=== PATIENT | female | born 1950 | race Caucasian/White ===

== ENCOUNTER 2019-07-28 10:22 | Emergency (ER) | payer BC ==
[2019-07-28] MEDS ORDERED: LEVALBUTEROL 1.25 MG/3 ML NEB ONE (11:24)
[2019-07-28] MEDS ORDERED: IPRATROPIUM BROM 0.5MG/2.5ML ONE (11:24)
--- NOTE | 2019-07-28 11:48 | RAD REPORT ---
EXAM DESCRIPTION: RAD - Chest Pa And Lat (2 Views) - 07/28/2019 11:04 am CLINICAL HISTORY: Congestion;Cough Chest pain. COMPARISON: Chest Single View dated 12/31/2016; CHEST PA AND LAT 2 VIEW dated 06/11/2013 FINDINGS: Prominent diffuse COPD is present. Calcified right peritracheal lymph nodes are present. T he heart is normal in size. No displaced fractures. IMPRESSION: Prominent COPD.
--- NOTE | 2019-07-28 12:18 | ER ---
Nurse's Notes [facility] Name: Alessandra Stone Age: 68 yrs Sex: Female : 1950 Arrival Date: 07/28/2019 Time: 10:38 Bed 19 Private MD: Diagnosis: Bronchitis, not specified as acute or chronic Presentation: 07/28 10:43 Presenting complaint: Patient states: "I have a horrible cough and its hard to breathe, aj1 and my neck and shoulders really hurts and I've had some chest pain" Reports that she has felt this way for the past 5 days. Transition of care: patient was not received from another setting of care. Onset of symptoms was July 2019. Risk Assessment: Do you want to hurt yourself or someone else? Patient reports no desire to harm self or others. Initial Sepsis Screen: Does the patient meet any 2 criteria? HR > 90 bpm. No. Patient's initial sepsis screen is negative. Does the patient have a suspected source of infection? Yes: Productive cough/pneumonia. Care prior to arrival: None. 10:43 Method Of Arrival: Ambulatory aj1 10:43 Acuity: TEVIN 3 aj1 Triage Assessment: 10:47 General: Appears in no apparent distress. comfortable, Behavior is calm, cooperative, aj1 appropriate for age. Pain: Complains of pain in chest and neck Pain currently is 3 out of 10 on a pain scale. EENT: Reports nasal congestion nasal discharge. Neuro: Level of Consciousness is awake, alert, obeys commands, Oriented to person, place, time, situation. Cardiovascular: Patient's skin is warm and dry. Respiratory: Reports shortness of breath on exertion cough that is productive, Onset: The symptoms/episode began/occurred 5 days ago, the patient has mild shortness of breath. Historical: - Allergies: 10:47 cilantro; aj1 - Home Meds: 10:47 None [Active]; aj1 - PMHx: 10:47 None; aj1 - PSHx: 10:47 Appendectomy; aj1 - Immunization history:: Flu vaccine is not up to date. - Coronavirus screen:: The patient has NOT traveled to [place], [place], or [place] in the past 14 days. - Social history:: Smoking status: Patient/guardian denies using tobacco. - Ebola Screening: : Patient denies travel to an Ebola-affected area in the 21 days before illness onset. Screenin:50 Abuse screen: Denies threats or abuse. Nutritional screening: No deficits noted. rb1 Tuberculosis screening: No symptoms or risk factors identified. Fall Risk None identified. Assessment: 10:50 General: Appears in no apparent distress. comfortable, Behavior is calm, cooperative, rb1 Reports fever for. Pain: Complains of pain in neck and chest Pain currently is 5 out of 10 on a pain scale. Pain began x 5 days Aggravated by coughing. Neuro: Level of Consciousness is awake, alert, obeys commands, Oriented to person, place, time, situation, Reports tingling in her fingers and when she touches her skin. Cardiovascular: Capillary refill < 3 seconds is brisk in bilateral fingers. Respiratory: Reports shortness of breath cough that is productive, yellow/green sputum Airway is patent Respiratory effort is even, unlabored, Respiratory pattern is regular, symmetrical. GI: Reports nausea. : No signs and/or symptoms were reported regarding the genitourinary system. Derm: Skin is pink, warm \\T\\ dry. 11:48 Reassessment: Patient appears in no apparent distress at this time. Patient and/or rb1 family updated on plan of care and expected duration. Pain level reassessed. Patient is alert, oriented x 3, equal unlabored respirations, skin warm/dry/pink. 12:43 Reassessment: Patient appears in no apparent distress at this time. No changes from rb1 previously documented assessment. Vital Signs: 10:47 BP 155 / 83; Pulse 100; Resp 20; Temp 98.2; Pulse Ox 94% on R/A; Weight 88.45 kg (R); aj1 Height 5 ft. 5 in. (165.10 cm) (R); Pain 3/10; 11:40 BP 138 / 77; Pulse 103; Resp 19; Pulse Ox 96% on R/A; rb1 12:38 BP 122 / 74; Pulse 109; Resp 19; Pulse Ox 97% on R/A; rb1 10:47 Body Mass Index 32.45 (88.45 kg, 165.10 cm) aj1 ED Course: 10:38 Patient arrived in ED. es 10:38 Arlene Prater FNP-C is PHCP. kb 10:38 Zane Vital MD is Attending Physician. kb 10:46 Triage completed. aj1 10:47 Arm band placed on Patient placed in an exam room. aj1 10:50 Patient has correct armband on for positive identification. Bed in low position. Call rb1 light in reach. Side rails up X 1. Pulse ox on. NIBP on. 11:02 Chest Pa And Lat (2 Views) XRAY In Process Unspecified. EDMS 11:06 Diann Thapa, RN is Primary Nurse. rb1 12:45 No provider procedures requiring assistance completed. Patient did not have IV access rb1 during this emergency room visit. Administered Medications: 11:24 Drug: Xopenex (3) 1.25 mg Route: Inhalation; rb1 11:24 Drug: AtroVENT Aerosol 0.5 mg Route: Inhalation; rb1 12:35 Drug: predniSONE 40 mg Route: PO; rb1 12:42 Follow up: Response: Medication administered at discharge. rb1 Outcome: 12:17 Discharge ordered by MD. kb 12:45 Discharged to home ambulatory, with family. rb1 12:45 Condition: stable 12:45 Discharge instructions given to patient, Instructed on discharge instructions, follow up and referral plans. medication usage, Demonstrated understanding of instructions, follow-up care, medications, Prescriptions given X 2. 12:45 Patient left the ED. rb1 Signatures: Dispatcher [employer] EDArlene Trevizo, SOFTWARE RELEASE MANAGER-Antonette HENSONP-Salma De La Rosa, RN RN aj1 Diane Najera Rebecca, RN RN rb1
--- NOTE | 2019-07-28 12:19 | EDPHYS ---
Physician Documentation [facility] Name: Alessandra Stone Age: 68 yrs Sex: Female : 1950 Arrival Date: 07/28/2019 Time: 10:38 Bed 19 Private MD: ED Physician Zane Vital HPI: 07/28 12:14 This 68 yrs old Female presents to ER via Ambulatory with complaints of kb Cough, Shortness Of Breath, Chest Congestion. 12:14 The patient or guardian reports cough, that is intermittent, described as moderate, kb with no sputum, difficulty breathing. Onset: The symptoms/episode began/occurred 5 day(s) ago. Severity of symptoms: At their worst the symptoms were moderate, in the emergency department the symptoms are unchanged. Modifying factors: The symptoms are alleviated by nothing, the symptoms are aggravated by nothing. Associated signs and symptoms: The patient has no apparent associated signs or symptoms. The patient has not experienced similar symptoms in the past. The patient has not recently seen a physician. Pt report cough and shortness of breath for 5 days. Quit smoking this week. Historical: - Allergies: 10:47 cilantro; aj1 - Home Meds: 10:47 None [Active]; aj1 - PMHx: 10:47 None; aj1 - PSHx: 10:47 Appendectomy; aj1 - Immunization history:: Flu vaccine is not up to date. - Coronavirus screen:: The patient has NOT traveled to [place], [place], or [place] in the past 14 days. - Social history:: Smoking status: Patient/guardian denies using tobacco. - Ebola Screening: : Patient denies travel to an Ebola-affected area in the 21 days before illness onset. ROS: 12:11 Constitutional: Negative for fever, chills, and weight loss, ENT: Negative for injury, kb pain, and discharge, Neck: Negative for injury, pain, and swelling, Cardiovascular: Negative for chest pain, palpitations, and edema, Abdomen/GI: Negative for abdominal pain, nausea, vomiting, diarrhea, and constipation, Back: Negative for injury and pain, MS/Extremity: Negative for injury and deformity, Skin: Negative for injury, rash, and discoloration, Neuro: Negative for headache, weakness, numbness, tingling, and seizure. 12:11 Respiratory: Positive for cough, shortness of breath. Exam: 12:13 Constitutional: This is a well developed, well nourished patient who is awake, alert, kb and in no acute distress. Head/Face: Normocephalic, atraumatic. ENT: Nares patent. No nasal discharge, no septal abnormalities noted. Tympanic membranes are normal and external auditory canals are clear. Oropharynx with no redness, swelling, or masses, exudates, or evidence of obstruction, uvula midline. Mucous membranes moist. Neck: Trachea midline, no thyromegaly or masses palpated, and no cervical lymphadenopathy. Supple, full range of motion without nuchal rigidity, or vertebral point tenderness. No Meningismus. Chest/axilla: Normal chest wall appearance and motion. Nontender with no deformity. No lesions are appreciated. Cardiovascular: Regular rate and rhythm with a normal S1 and S2. No gallops, murmurs, or rubs. Normal PMI, no JVD. No pulse deficits. Respiratory: Lungs have equal breath sounds bilaterally, clear to auscultation and percussion. No rales, rhonchi or wheezes noted. No increased work of breathing, no retractions or nasal flaring. Abdomen/GI: Soft, non-tender, with normal bowel sounds. No distension or tympany. No guarding or rebound. No evidence of tenderness throughout. Skin: Warm, dry with normal turgor. Normal color with no rashes, no lesions, and no evidence of cellulitis. MS/ Extremity: Pulses equal, no cyanosis. Neurovascular intact. Full, normal range of motion. Neuro: Awake and alert, GCS 15, oriented to person, place, time, and situation. Cranial nerves II-XII grossly intact. Motor strength 5/5 in all extremities. Sensory grossly intact. Cerebellar exam normal. Normal gait. Vital Signs: 10:47 BP 155 / 83; Pulse 100; Resp 20; Temp 98.2; Pulse Ox 94% on R/A; Weight 88.45 kg (R); aj1 Height 5 ft. 5 in. (165.10 cm) (R); Pain 3/10; 11:40 BP 138 / 77; Pulse 103; Resp 19; Pulse Ox 96% on R/A; rb1 12:38 BP 122 / 74; Pulse 109; Resp 19; Pulse Ox 97% on R/A; rb1 10:47 Body Mass Index 32.45 (88.45 kg, 165.10 cm) aj1 MDM: 10:49 Patient medically screened. kb 12:08 Data reviewed: vital signs, nurses notes. Data interpreted: Pulse oximetry: on room air kb is 94 %. Interpretation: acceptable. Counseling: I had a detailed discussion with the patient and/or guardian regarding: the historical points, exam findings, and any diagnostic results supporting the discharge/admit diagnosis, lab results, radiology results, the need for outpatient follow up, a family practitioner, to return to the emergency department if symptoms worsen or persist or if there are any questions or concerns that arise at home. 07/28 10:43 Order name: Flu; Complete Time: 11:46 kb 07/28 11:16 Order name: Strep; Complete Time: 11:46 kb 07/28 10:43 Order name: Chest Pa And Lat (2 Views) XRAY; Complete Time: 11:56 kb 07/28 11:46 Order name: Throat Culture EDMS Administered Medications: 11:24 Drug: Xopenex (3) 1.25 mg Route: Inhalation; rb1 11:24 Drug: AtroVENT Aerosol 0.5 mg Route: Inhalation; rb1 12:35 Drug: predniSONE 40 mg Route: PO; rb1 12:42 Follow up: Response: Medication administered at discharge. rb1 Disposition: 16:31 Co-signature as Attending Physician, Zane Vital MD I agree with the assessment and kdr plan of care. Disposition: 07/28/19 12:17 Discharged to Home. Impression: Bronchitis, not specified as acute or chronic. - Condition is Stable. - Discharge Instructions: Chronic Obstructive Pulmonary Disease, Acute Bronchitis, [id number]. - Prescriptions for Prednisone 20 mg Oral Tablet - take 1 tablet by ORAL route once daily for 5 days; 5 tablet. Albuterol Sulfate 90 mcg/actuation - inhale 1-2 puff by INHALATION route every 4-6 hours; 1 Inhaler. - Medication Reconciliation Form, Thank You Letter, Antibiotic Education, Prescription Opioid Use form. - Follow up: Emergency Department; When: As needed; Reason: Worsening of condition. Follow up: Private Physician; When: 2 - 3 days; Reason: Recheck today's complaints, Continuance of care, Re-evaluation by your physician. Signatures: Dispatcher [employer] EDMS Arlnee Prater FNP-C ENGAGEMENT MGR-CkSalma Jones, RN RN aj1 Zane Vital MD MD kdr Diann Thapa, RN RN rb1 Corrections: (The following items were deleted from the chart) 12:45 12:17 07/28/2019 12:17 Discharged to Home. Impression: Bronchitis, not specified as rb1 acute or chronic. Condition is Stable. Forms are Medication Reconciliation Form, Thank You Letter, Antibiotic Education, Prescription Opioid Use. Follow up: Emergency Department; When: As needed; Reason: Worsening of condition. Follow up: Private Physician; When: 2 - 3 days; Reason: Recheck today's complaints, Continuance of care, Re-evaluation by your physician. kb
[2019-07-28] MEDS ORDERED: predniSONE 20 MG TAB ONE (12:26)
== END 2019-07-28 12:45 | disposition home or self-care (01) ==
LOC: ER 10:22
DX: J40 Bronchitis, not specified as acute or chronic (principal); Z91.018 Allergy to other foods
CPT/HCPCS: 71046; 87070; 87081; 87804; 99284; J7512

== ENCOUNTER 2024-10-15 07:18 | Day surgery (SDC) | payer BC ==
[2024-10-12 16:32] LABS: Absolute Eosinophils 0.1 K/uL (0-0.5); Absolute Lymphocytes (CBC) 1.7 K/uL (0.7-4.9); Absolute Monocytes 0.6 K/uL (0.1-1.3); Absolute Neutrophil 3.7 K/uL (1.8-8.0); Basophils % 0.7 % (0-1.3); Eosinophils % 2.2 % (0-4.4); Hematocrit 36.9 % (36.0-45.0); Hemoglobin 12.8 g/dL (12.0-15.0); Lymphocytes % 27.5 % (15.3-44.8); MCH 33.3 pg (27.0-35.0); MCHC 34.7 g/dL (32.0-36.0); MCV 95.8 fL (80-100); MPV 7.9 fL (7.6-11.3); Monocytes % 9.2 % (3.3-12.3); Neutrophils % 60.4 % (41.7-73.7); Platelets 221 thou/uL (152-406); RBC Red Blood Cell Count 3.85 M/uL (3.86-4.86); Red Cell Distribution Width 15.3 % (12.1-15.2)
--- NOTE | 2024-10-12 16:47 | RAD REPORT ---
EXAMINATION: TWO VIEW CHEST XR CLINICAL INDICATION: pdre op for day surgery TECHNIQUE: 2 views of the chest was performed. COMPARISON: No prior exam. FINDINGS: The lungs are hyperexpanded suggesting COPD. The heart is normal in size. No displaced fractures evid ent. Calcified right paratracheal lymph nodes. IMPRESSION: COPD is suspected without acute finding identified.
[2024-10-12 16:51] LABS: ALT/SGPT 22 U/L (13-56); AST/SGOT 15 U/L (15-37); Albumin 3.6 g/dL (3.4-5.0); Albumin/Globulin Ratio 1.1 (1.1-1.8); Alkaline Phosphatase 87 U/L (45-117); Anion Gap 7.8 mEq/L (5.0-15.0); BUN Blood Urea Nitrogen 19 mg/dL (7-18); Bicarbonate 27 mEq/L (21-32); Bilirubin Direct < 0.2 mg/dL (0-0.2); Bilirubin Indirect, Calculated 0.1 mg/dL (0.2-0.8); Bilirubin Total 0.3 mg/dL (0.2-1.0); Globulin 3.2 g/dL (2.3-3.5); Glomerular Filtration Rate 72 ml/min (=/>90); Glucose Level 99 mg/dL (74-106); Lipase 48 U/L (13-75); Potassium 3.8 mEq/L (3.5-5.1); Protein, Total 6.8 g/dL (6.4-8.2); Sodium Level 142 mEq/L (136-145)
[2024-10-15] MEDS: Ringers Lactate 1,000 ML IV ONE (07:50)
[2024-10-15] MEDS ORDERED: KETOROLAC 30 MG/ML INJ ONE (08:23)
[2024-10-15] MEDS ORDERED: FENTANYL CITR 100 MCG/2 ML ONE (08:23)
[2024-10-15] MEDS ORDERED: LIDOCAINE 2% MPF 5 ML VIAL ONE (08:23)
[2024-10-15] MEDS ORDERED: ONDANSETRON 4 MG/2 ML VIAL ONE (08:23)
[2024-10-15] MEDS ORDERED: dexAMETHasone 10 MG/ML VIAL ONE (08:23)
[2024-10-15] MEDS ORDERED: propofoL 200 MG/20 ML VIAL IV ONE (08:23)
[2024-10-15] MEDS ORDERED: ROCURONIUM 50 MG/5 ML VIAL IV ONE (08:23)
[2024-10-15] MEDS ORDERED: MIDAZOLAM HCL 2 MG/2 ML INJ ONE (08:23)
[2024-10-15] MEDS: CEFOXITIN SODIUM 1 GM/VIAL ONE (08:37)
[2024-10-15] MEDS ORDERED: Mastisol Adhesive Liq ONE (09:12)
[2024-10-15] MEDS ORDERED: GLYCOPYRROLATE 0.2 MG/ML SYR ONE (09:42)
[2024-10-15] MEDS ORDERED: NEOSTIGMINE 1 MG/ML -10 ML VIAL ONE (09:42)
--- NOTE | 2024-10-15 09:58 | P.BOP ---
Preoperative diagnosis: symptomatic cholelithiasis, tender umbilical reducible hernia 3cm Postoperative diagnosis: same, intrabdominal adhesions, Primary procedure: 1. Laparoscopic cholecystectomy Secondary procedure: 2. umbilical reducible hernia repair 3cm Other procedure(s): 3. Lysis of adhesions Estimated blood loss: <10cc Specimen: gb, sac Findings: as above. multiple intrabdomnal adhesions, hx of abd surgeries for Cancer Anesthesia: General Complications: None Transferred to: Recovery Room Condition: Good
[2024-10-15] MEDS: HYDROMORPHONE HCL 1 MG/ML INJ ONE (10:22)
[2024-10-15] MEDS: FENTANYL CITR 100 MCG/2 ML ONE (10:32)
[2024-10-15] MEDS: CODEINE 30MG/APAP 300MG TAB ONE (11:00)
[2024-10-15 11:52] VITALS: BP 103/50; TEMP 97.7; O2SAT 98
--- NOTE | 2024-10-15 12:07 | OP ---
Date of Procedure: 10/15/2024 Surgeon: Lester Solis MD Preoperative Diagnoses: Symptomatic cholelithiasis, tender umbilical hernia, reducible about 3 cm. Postoperative Diagnoses: Symptomatic cholelithiasis, tender umbilical hernia, reducible about 3 cm p alisa intraabdominal adhesions. Procedures: 1. Laparoscopic cholecystectomy. 2. Open repair of reducible tender umbilical hernia about 3 cm. 3. Lysis of adhesions. Estimated Blood Loss: Less than 10 cc. Specimens: Gallbladder and hernia sac. Findings: The patient has multiple intraabdominal adhesions for a cancer that unfortunately trigger multiple adhesions. When we went inside the belly, we have to take those adhesions down to the anter ior abdominal wall, also adhesions to the liver and the gallbladder in order for us to start the surg franko that was done with the help of LigaSure. Complications: None. Anesthesia: General plus local. Indications: This is the case of a female, who came to us with 2 problems. She has a symptomatic ch olelithiasis and also she has an umbilical hernia. She wants both fixed. Both of them were giving h er pain and discomfort and obviously 2 different kind of pains. The benefits, alternatives, and risk s of laparoscopic, possible open cholecystectomy with repair of umbilical hernia fully explained, whi ch include, but not limited to, infection, bleeding, damage to adjacent structures, anesthesia compli cation, choledocholithiasis, bile leak, recurrence of the hernia, WI, and even . She also under stands this may not relieve any symptoms. She might need more than one surgical intervention. She u nderstood, signed a consent. She understood importance of losing weight and avoiding heavy lifting. Description Of Procedure: The patient was brought to the operating room, placed in supine position. Anesthesia was given without complication. Abdominal area was prepped and draped in a sterile fashi on. A time-out was called. Local anesthetic was applied followed by sharp incision of the skin in t he periumbilical region. Incision was carried down until we found the hernia sac. The hernia sac wa s then opened. We noticed the omentum cannot be reduced, so what we did, we suture ligated that one, and removed the rest of the hernia sac and cleaned the fascial edges, we were able to put Vicryl #1 inside the fascia and we used that opening for Francisca trocar. Once we have the Francisca trocar in, we obtained pneumoperitoneum and then placed 3 more trocars, 5 mm each one of them in the epigastric rig ht upper quadrant area, due to what I believe might be just previous surgeries for cancer. She has m ultiple adhesions in the abdomen and they have to be removed at least in the right upper quadrant to be able to proceed with the surgery. So, with the help of LigaSure, we were able to take those adhes ions down without any enterotomies. Once we had the gallbladder clear, we proceeded to put a grasper in the fundus of the gallbladder, another grasper in the infundibulum, retracting the gallbladder in the inferolateral fashion exposing the triangle of Calot, obtaining critical view. Cystic duct and cystic artery were cleared out circumferentially, and a connection between those and the gallbladder were clearly identified. I proceeded to ligate those by using at least 3 clips proximal, 1 clip dist al, ligation in the middle. Same was done with the cystic artery. No bile leak. No bleeding. The gallbladder was removed from liver using Bovie cauterizer and removed from abdominal cavity using End oCatch through the umbilical incision. The area was inspected once again. No bile leak. No bleedin g. At that moment, I proceeded to remove the trocars under direct vision. Deflated pneumoperitoneum . Before that, we made sure that the area of the lysis of adhesion shows no bleeding. Once we defla luis felipe pneumoperitoneum, we proceeded to close the umbilical hernia with #1 Vicryl. Irrigated subcutane ous tissue, closed that with 3-0 chromic and skin in subcuticular fashion with 3-0 chromic and Steri- Strips on top. Sponge counts and instrument counts were correct. Patient tolerated the procedure well. Patient was sent to Recovery in stable condition. FRANCESCA/BLAS Voice ID: [id number] Report ID: [id number]
--- NOTE | 2024-10-15 12:11 | DS ---
Diagnoses: Symptomatic cholelithiasis, tender umbilical hernia, intraabdominal adhesions. Procedures: Laparoscopic cholecystectomy, open repair of umbilical hernia, lysis of adhesions. Condition: Stable. Disposition: Discharged home. Discharge Instructions: Follow up in my office in 1 week. Call for appointment at [phone]. Keep a hali dry for 48 hours, then may shower. Keep Steri-Strip intact. Medications were previously called. FRANCESCA/BLAS Voice ID: [id number] Report ID: [id number]
== END 2024-10-15 12:05 | disposition home or self-care (01) ==
LOC: OR 07:18
PROVIDERS: ATTEND Surgery
PROC: 0FT44ZZ Resection of Gallbladder, Percutaneous Endoscopic Approach (ICD-10-PCS; principal; 2024-10-15 08:30)
PROC: 0DNW4ZZ Release Peritoneum, Percutaneous Endoscopic Approach (ICD-10-PCS; 2024-10-15 08:30)
DX: K80.20 Calculus of gallbladder without cholecystitis without obstruction (principal); K42.9 Umbilical hernia without obstruction or gangrene; K66.0 Peritoneal adhesions (postprocedural) (postinfection)
CPT/HCPCS: 85025; 80048; 36415; 80076; 88302; 88304; 83690; 71046; 47562; 49329; L0625; J2704; J2710; J2003; J2250; J3010 ×2; J1100; J1171; J0694; J2405; J7120